=== PATIENT | male | born 1980 | race African-American/Black ===

== ENCOUNTER 2021-03-31 10:20 | Emergency (ER) | payer OTHER, SELFPAY ==
[2021-03-31 10:30] VITALS: BP 142/84; PULSE 72; RESP 20; TEMP 36.9; O2SAT 99
--- NOTE | 2021-03-31 10:34 | ED.LOWEXIN ---
HPI - Extremity Injury (Lower) General Chief Complaint: Extremity Injury, Lower Stated Complaint: rt ankle Time Seen by Provider: 03/31/21 10:40 Source: patient and RN notes reviewed Mode of arrival: ambulatory Limitations: no limitations History of Present Illness HPI Narrative: 40-year-old male presents with concern for laceration to the right ankle. Reports he cut his ankle on a door today. He flushed the wound out with hydrogen peroxide, applied antibiotic ointment and glued the wound closed with superglue. He reports he is up-to-date on his tetanus vaccination. In a separate complaint he reports he has a bug bite on his scrotum that is itchy. Reports he noticed the bite this morning. He denies any scrotal pain, tenderness, testicle pain or tenderness. He denies intervention for the bug bite. MD complaint: ankle injury Related Data Allergies Allergy/AdvReac Type Severity Reaction Status Date / Time grass pollen Allergy Intermediate from test Verified 03/31/21 10:39 Review of Systems Review of Systems: Narrative: CONSTITUTIONAL: Denies malaise, chills, sweats, or fever. SKIN: Reports laceration on the posterior right lower ankle. Reports bug bite on scrotum. MUSCULOSKELETAL: Denies musculoskeletal pain or myalgia. NEUROLOGIC: Denies numbness, weakness All systems reviewed & are unremarkable except as noted in HPI and below PMFSH Past Medical History Medical History (Updated 03/31/21 @ 10:52 by Janna Nunn NP) Chronic allergic rhinitis Chronic sinusitis, unspecified Thoracic vertebral fracture Social History Social History (System 04/15/20 @ 10:41 by Henrietta Abebe) Smoking status: Former smoker Second hand tobacco smoke exposure: Yes Smoking end date: 04/25/17 Alcohol intake: current Gender identity (if verbalized by the patient): Male Sexual Orientation (if Verbalized by the Patient): Straight or Heterosexual Comments At time of signature, agree with nursing past medical, surgical, social and family history. There is no relevant family history pertinent to the presenting complaint Exam Narrative: Exam Narrative: GENERAL: Well-appearing, well-nourished, and in no acute distress. HEAD: Normocephalic, atraumatic. EYES: PERRLA, conjunctivae clear ENT: Mucous membranes moist. NECK: Supple. No lymphadenopathy CHEST: Clear to auscultation. No respiratory distress. HEART: Regular rate and rhythm. SKIN: Warm, dry. 2 cm laceration noted to the posterior right ankle, edges approximated, closed with superglue. Without surrounding redness, erythema, induration. 0.5 cm erythematous papule noted to the right scrotum without surrounding erythema, edema, induration, no drainage noted. MUSCULOSKELETAL: Right lower extremity has grossly normal strength, sensation, range of motion NEURO: Alert and oriented x3. PSYCH: Normal mood and affect Course Course Emergency Course: Patient is aware of diagnosis, understands and agrees to treatment plan. Anticipatory guidance given. Patient agrees to follow-up as directed and is aware of reasons to seek care at the emergency department. Portions of this record may have been created with voice recognition software Vital Signs Vital signs: Vital Signs Temperature 98.5 F 03/31/21 10:30 Pulse Rate 72 03/31/21 10:30 Respiratory Rate 20 03/31/21 10:30 Blood Pressure 142/84 H 03/31/21 10:30 Pulse Oximetry 99 03/31/21 10:30 Temperature 98.5 F 03/31/21 10:30 Pulse Rate 72 03/31/21 10:30 Respiratory Rate 20 03/31/21 10:30 Blood Pressure 142/84 H 03/31/21 10:30 Pulse Oximetry 99 03/31/21 10:30 Reviewed. MDM - Extremity Injury (Lower) MDM Narrative Medical decision making narrative: Exam findings show no acute concerns or changes; patient is non-toxic appearing and is in no distress. Patient is appropriate for outpatient treatment and follow-up. Critical Care Time Critical Care Time Critical Care Time: No Discharge Plan Discharge
== END 2021-03-31 10:55 | disposition home or self-care (01) ==
PROVIDERS: Emergency Provider Nurse Practitioner
DX: S91.011A Laceration without foreign body, right ankle, initial encounter (principal); W45.8XXA Other foreign body or object entering through skin, initial encounter; Z87.891 Personal history of nicotine dependence; Z98.52 Vasectomy status; S30.863A Insect bite (nonvenomous) of scrotum and testes, initial encounter; W57.XXXA Bitten or stung by nonvenomous insect and other nonvenomous arthropods, initial encounter
CPT/HCPCS: 99212; G0463

== ENCOUNTER → 2021-08-03 04:04 | Outpatient (CLI) | payer OTHER, SELFPAY ==
[2021-08-03 16:54] LABS: SARS-CoV-2 RNA PCR Negative
== END ==
PROVIDERS: PCP Family Medicine; Visit Provider Podiatrist Foot & Ankle Surgery
DX: Z01.812 Encounter for preprocedural laboratory examination (principal); Z20.822 Contact with and (suspected) exposure to COVID-19
CPT/HCPCS: C9803; U0003; U0005

== ENCOUNTER 2021-08-06 02:48 | Day surgery (SDC) | payer OTHER, SELFPAY ==
[2021-08-04 10:10] VITALS: BMI 38.0
--- NOTE | 2021-08-04 10:22 | PC.NURSE ---
Addendum entered by Radha Vu RN 08/04/21 10:26: MEDICATIONS TO DISCONTINUE: VITAMINS AND SUPPLEMENTS 3 DAYS PRE-OP, NSAIDS PER DR. STARK. (PT STATES HE HAS NOT BEEN TAKING ANY MEDICATIONS FOR A COUPLE WEEKS) Original Note: Report to the Outpatient Waiting Room, entrance under the green pavilion located off [facility], at time 0600 on date 08/06/21. OR Time: 0730. - You and your visitor will be asked a series of questions to screen for COVID 19 for your protection. - A mask is required within the hospital. - Only one visitor is allowed at this time. Patient visitors will be guided where to wait when not with patient. Preoperative COVID Testing Requirements: No COVID Test needed if: (proof is required; if not received patient will have Rapid Test prior to entry) - Patient has received COVID Vaccine at least 14 days prior to procedure date or - Patient has positive COVID test result within last 90 days of surgery date. COVID Test needed if above criteria is not met If not COVID vaccinated a COVID test must be conducted within 72 hours of surgery and patient is asked to isolate self from time of testing until procedure. You will go to the [facility] for your COVID testing. The [facility] site is located at the corner of [address] [facility]. You will only be called if COVID results are positive and your surgeon may reschedule your elective surgery date. Patients may have clear liquids (water, carbonated beverages, clear teas, apple juice) until 3 hours prior to surgery with a maximum of 20 ounces. - No food from midnight until time of surgery - Infants may have breast milk until 4 hours before surgery, formula 6 hours prior to surgery. - Children will be allowed to drink immediately following surgery. If applicable, please bring a bottle or sippy cup to assist with drinking. Juice, water, soda, and popsicles are readily available. For infants on formula, please bring formula the day of surgery. Pacifiers are allowed. Take the following medications with a SIP of water the morning of surgery: N/A Medications to discontinue per physician: NSAIDS Date to take last dose: 3 DAYS PRE-OP Please no make-up, nail divehi, hairspray, perfume, deodorant, or body powder the day of surgery. No jewelry (including any body piercings) or valuables the day of surgery, leave them at home. Please take a shower or bath the night before, or the morning of, surgery with an antibacterial soap. Wear comfortable, loose fitting clothing. Children are encouraged to wear pajamas. - Jewelry must be removed prior to entering the operating room. Rings and piercings that are not removed may be cut off. - The hospital will not accept responsibility for valuables. - Please leave all valuables, including medications, at home the day of surgery. If you are going home after surgery, a licensed driver license agent must drive you home. - NO public transportation without another adult. - We recommend that an adult stay with you for 24 hours following discharge. - We also recommend that you do not drive, make important decision, drink alcoholic beverages, or take any drugs that were not prescribed by your health care provider for at least 24 hours after your discharge time. For Pediatric surgeries, we recommend two adults accompany the child home (only one inside the building at this time). Follow any additional instructions given to you from your surgeon. Telephone instructions given to BULMARO NUR and asked if any additional questions and then verbalized understanding. Patient advised to call surgeon office or pre surgery nurse liaison [phone] if any additional questions.
[2021-08-06] VITALS (7 sets, daily range): BP systolic 112–130; BP diastolic 59–86; PULSE 59–69; RESP 18–20; TEMP 36.1–37; O2SAT 96–100; BMI 37.3
--- NOTE | ~2021-08-06 | XR_ITS ---
XR surgery orthopedic 08/06/2021 08:41 Indication: Arthrodesis of the left foot Procedure: 4 fluoroscopic views of the left first toe. 17 seconds of fluoroscopy. Comparison: 04/03/2018 Findings: There is side plate and screws transfixing the first metatarsal phalangeal joint. No gross fracture or malalignment. There is a radiopaque screw overlying the hindfoot as well. Impression: 1: Status post intraoperative fixation of the left first metatarsophalangeal joint. Please refer to p rocedural report for details. Reviewed, dictated and finalized at location A. [employer] Impression: 1: Status post intraoperative fixation of the left first metatarsophalangeal eric int. Please refer to procedural report for details.
[2021-08-06] MEDS: LACTATED RINGERS 1,000 ML 30 ML IV CONT ×2 (06:48→09:04)
--- NOTE | 2021-08-06 06:51 | WPDANESEPPF ---
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, Talotarsal Instability Lt Ft Patient Data Age: 41 Gender: M Height: 1.78 m Weight: 118 kg Last Vital Signs Temp 36.1 C L 08/06/21 06:44 Pulse 69 08/06/21 06:44 Resp 18 08/06/21 06:44 BP 130/76 08/06/21 06:44 Pulse Ox 100 08/06/21 06:44 Allergies Allergy/AdvReac Type Severity Reaction Status Date / Time grass pollen Allergy Intermediate from test Verified 08/06/21 06:42 Home Medications Medication Instructions Recorded Confirmed Type fluticasone propionate 50 2 spray NASAL DAILY 90 Days #47.4 10/07/20 08/04/21 Rx mcg/actuation nasal ml spray,suspension meloxicam 15 mg tablet 15 mg PO DAILY 90 Days #90 tablet 10/07/20 08/04/21 Rx ascorbate calcium (vitamin C) 500 500 mg PO DAILY 04/30/21 08/04/21 History mg tablet biotin 5,000 mcg disintegrating 10,000 mcg PO DAILY 04/30/21 08/04/21 History tablet cholecalciferol (vitamin D3) 50 50 mcg PO DAILY 04/30/21 08/04/21 History mcg (2,000 unit) capsule pentoxifylline 400 mg 400 mg PO DAILY tablet 04/30/21 08/04/21 History tablet,extended release montelukast 5 mg chewable tablet 10 mg PO DAILY #30 tablet 05/07/21 08/04/21 Rx Patient hx anesthesia problems: none Family hx anesthesia problems: none Results Review: All pre-operative results and documents have been reviewed as part of the pre-operative evaluation. [facility] Past Medical History Medical History (Updated 08/06/21 @ 06:51 by Dmitry Sellers MD) Chronic allergic rhinitis Chronic sinusitis, unspecified ZURI (obstructive sleep apnea) Thoracic vertebral fracture Family History Family History Father Breast cancer Malignant neoplasm of prostate Colon cancer Diabetes mellitus Hypertension Depression Heart abnormality Cerebrovascular accident Mother Malignant neoplasm of prostate Hypertension Depression Heart disease Social History Social History Smoking packs per day: 0.75 Smoking cigarettes per day: 15.0 Years smoked: 15 Smoking pack-years: 11.25 Smoking status: Current every day smoker Tobacco type: cigarettes Second hand tobacco smoke exposure: Yes Smoking end date: 04/25/17 Alcohol intake: current Drinks per week: 15 Substance use: current Substance use type: marijuana Other substance usage details: SMOKE, EDIBLES Last use: 08/02/21 Living arrangements: with family Gender identity (if verbalized by the patient): Male Sexual Orientation (if Verbalized by the Patient): Straight or Heterosexual Spiritual care concerns: Yes (NO BLOOD PRODUCTS) Anes - Eval Final PreProcedure Day of Procedure 08/06/21 06:51 Patient weight: obese Heart: regular rate and rhythm Lungs: clear to auscultation Airway: Mallampati scale class II Neurological: alert and oriented Last oral intake: >/= 8 hours ASA classification: III Emergent: no Anesthetic plan: proceed Anesthesia type and monitoring: general LMA and standard monitoring Results Review: All pre-operative results and documents have been reviewed as part of the pre-operative evaluation. Informed Consent: The patient's anesthetic plan and its attendant risks and benefits were discussed with the patient/family/POA. Questions were solicited and answers provided to the satisfaction of the patient/family/POA.
--- NOTE | 2021-08-06 07:12 | WPDHPUPDATE1 ---
History and Physical Update Update Date/Time: 08/06/21 07:12 History and Physical has been reviewed, including an updated exam of the patient. There are NO changes in the patient's condition. Risks, benefits, and alternatives have been discussed and questions answered. Patient agrees to proceed with procedure.
--- NOTE | 2021-08-06 07:22 | WPDANESPNB ---
Anes - Peripheral Nerve Block Date/Time: 08/06/21 07:22 I have discussed with the patient/family/POA the placement of a peripheral nerve block for post-operative pain management, including associated risks, benefits, complications, and side effects. Alternative methods of post-operative analgesia were detailed. Questions were solicited and answers provided to the satisfaction of the patient/family/POA. Time-Out: A pre-procedural Time-Out was completed immediately before starting the procedure and confirmed: Patient Identification, Site, Procedure, Patient Position and the Availability of Requisite Equipment. Clinical Indications: Acute post-operative pain management requested by the operative surgeon. Nerve Block Insertion Note Anes-nerve block: posterior fossa sciatic left and other (left saphenous) Patient position: supine Skin prep: chlorhexidine Needle: 22 gauge, stimulating, insulated echogenic needle. Needle length: 80 mm Technique: nerve stimulation lost at (mA) (0.35) Injectate: bupivacaine 0.5% with epi 5 mcg/ml (24cc lateral, 8cc saphenous) and dexamethasone (mg) (8) Observations: tolerated well Complications: none Procedure start time:: 714 Procedure end time:: 720
[2021-08-06] MEDS: ceFAZolin 2 GM/D5W 50 ML 2 GM/50 ML BAG IVPB (07:28)
[2021-08-06] MEDS: LIDOCAINE HCL 2% PF INJ 5 ML VIAL 10 ML INFILTRATE (07:37)
--- NOTE | 2021-08-06 09:16 | W.PM.PROC2 ---
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 Arthrodesis of the first metatarsal phalangeal joint left foot 2. Talotarsal stabilization left foot Surgeon Prosper Unger JR, SEBAS Anesthesia general and regional Description of Procedure PROCEDURE IN DETAIL: Under mild sedation, the patient was brought into the operating room, placed on the operating table in supine position. A pneumatic ankle tourniquet was placed about the patient's ipsilateral ankle. Following general LMA, and a previous popliteal fossa block was obtained about the left foot. I utilized 10cc of 2% Lidocaine plain along the medial forefoot. The foot was then scrubbed, prepped, and draped in the usual aseptic manner. An Esmarch bandage was then used to exsanguinate the patient's foot and the pneumatic ankle tourniquet was then inflated. Surgery began in the following manner: Attention was directed to the dorsal aspect of the 1st metatarsophalangeal joint where there was a large subcutaneous prominence noted along the dorsomedial aspect of the joint. The incision was made starting along the central shaft of the 1st metatarsal and extending just proximal to the interphalangeal joint of the hallux. The incision was continued deep down through the subcutaneous tissues using sharp and blunt dissection. All bleeders were cauterized as necessary. At this point, the dissection was continued down to the level of the periosteum and capsular structures overlying the 1st metatarsophalangeal joint. A full length periosteum and capsular incision was made just medial to the extensor hallucis longus tendon. The periosteum and capsular structures were freed from the base of the proximal phalanx as well as the distal 1st metatarsal. At this point, the 1st metatarsophalangeal joint was identified. There was almost complete loss of articular cartilage to the head of the 1st metatarsal as well as the base of the proximal phalanx. There was significant broadening and hypertrophy of the 1st metatarsophalangeal joint. Utilizing a sagittal bone saw, the hypertrophied 1st metatarsal was resected dorsally, medially, and laterally. A power bur was used to make sure that there were no rough edges and also to further debride the hypertrophic 1st metatarsal. Next, a rongeur was used to resect all hypertrophic base of the proximal phalanx. At this point, the reamer system for the ChoozleCHECK system was used to denude the degenerative cartilage from the head of the 1st metatarsal as well as the base of the proximal phalanx. The cartilage and subchondral bone were fully debrided utilizing the reamer system until healthy bleeding bone was noted. Next, a 2-0 drill bit was used to further fenestrate the head of the 1st metatarsal as well as the base of the proximal phalanx in order to allow fusion across the 1st metatarsophalangeal joint. Next, a 0.045 inch K-wire was driven from the medial aspect of the base of the proximal phalanx into the head of the 1st metatarsal in order to serve as temporary fixation. A large steel plate was used to make sure that the hallux was in a rectus position both in the sagittal plane as well as the frontal and transverse plane. Excellent position of the hallux was noted. Next, a CrossCHECK plate was placed atop the 1st metatarsophalangeal joint held in position with [place] wires. Utilizing standard principles and techniques, the 2 distal drill holes were drilled and two 2.7mm mm fully-threaded locking screws were driven from dorsal to plantar holding the distal aspect of the plate intact. At this point, a 3.5mm lag screw was driven from dorsal distal to proximal plantar across the 1st metatarsophalangeal joint through the plate system with excellent compression noted after careful removal of the olive wire and
[2021-08-06] MEDS: fentaNYL CITRATE INJ (*CRX) 100 MCG/2 ML VIAL 25 MCG IV PUSH (09:20)
== END 2021-08-06 10:25 | disposition home or self-care (01) ==
PROVIDERS: PCP Family Medicine; Visit Provider Podiatrist Foot & Ankle Surgery
PROC: (CPT 28750; principal; 2021-08-06 07:30)
PROC: (CPT 28750; 2021-08-06 07:30)
DX: M19.072 Primary osteoarthritis, left ankle and foot (principal); M25.375 Other instability, left foot; G89.18 Other acute postprocedural pain; G47.33 Obstructive sleep apnea (adult) (pediatric); F17.210 Nicotine dependence, cigarettes, uncomplicated; F12.90 Cannabis use, unspecified, uncomplicated; E66.9 Obesity, unspecified; Z68.37 Body mass index [BMI] 37.0-37.9, adult
CPT/HCPCS: 28899; 64445; 64450; 28750; A9270; C1713; C9803; J0690; J1100; J2250; J2405; J2704; J3010; J7120; U0003; U0005

== ENCOUNTER 2022-11-19 10:33 | Emergency (ER) | payer OTHER, SELFPAY ==
--- NOTE | ~2022-11-19 | XR_ITS ---
XR chest 2V DATE: 11/19/2022 11:11 INDICATION: Cough for 2 months, shortness of breath. Smoker. TECHNIQUE: 2 views COMPARISON: 10/18/2017 two-view chest FINDINGS: Normal heart size. No hilar or mediastinal enlargement. No pulmonary infiltrate or consolid ation, pleural effusion or pulmonary vascular congestion or pneumothorax. There is mild thoracic dextroscoliosis. IMPRESSION: No active cardiopulmonary disease Reviewed, dictated and finalized at location A. [employer]
[2022-11-19 10:45] VITALS: BP 136/75; PULSE 87; RESP 22; TEMP 36.8; O2SAT 98
--- NOTE | 2022-11-19 11:25 | ED.URI ---
HPI - URI/Sore Throat General Chief Complaint: Upper Respiratory Infection Stated Complaint: Congestion,SOB Time Seen by Provider: 11/19/22 11:10 Source: patient Mode of arrival: ambulatory Limitations: no limitations History of Present Illness HPI Narrative: Patient presents today with a 3-4 day history of sinus pressure, congestion, cough, intermittent shortness breath. Denies fever. States he had been having some ongoing chest congestion and cough symptoms since August 30 when he was diagnosed with influenza a, but states that 1 week ago his symptoms had almost completely resolved, until 3-4 days ago when these symptoms started. He has been occasionally taking Mucinex, but cannot tell if it has been providing him with relief. Denies history of asthma or COPD. Smokes 1 pack per day. Related Data Allergies Allergy/AdvReac Type Severity Reaction Status Date / Time grass pollen AdvReac Intermediate from test Verified 11/19/22 10:38 Review of Systems Review of Systems: CONSTITUTIONAL: Denies body aches, fever, chills, or sweats. EYES: Denies visual changes, redness, or discharge. ENT: Denies rhinorrhea, sore throat, or otalgia.+ congestion, sinus pressure CARDIOVASCULAR: Denies chest pain, palpitations, or edema. RESPIRATORY: + cough, shortness of breath GASTROINTESTINAL: Denies abdominal pain, nausea, vomiting, or diarrhea. GENITOURINARY: Denies dysuria or hematuria. SKIN: Denies rash, itching, or wounds. MUSCULOSKELETAL: Denies back pain, joint pain, or myalgia. NEUROLOGIC: Denies headache, numbness, tingling, or weakness. PSYCH: Denies depression or anxiety. [facility] Past Medical History Medical History Chronic allergic rhinitis Chronic sinusitis, unspecified ZURI (obstructive sleep apnea) Thoracic vertebral fracture Family History Family History Father Breast cancer Malignant neoplasm of prostate Colon cancer Diabetes mellitus Hypertension Depression Heart abnormality Cerebrovascular accident Mother Malignant neoplasm of prostate Hypertension Depression Heart disease Social History Social History Smoking packs per day: 0.75 Smoking cigarettes per day: 15.0 Years smoked: 15 Smoking pack-years: 11.25 Smoking status: Current every day smoker Tobacco type: cigarettes Second hand tobacco smoke exposure: Yes Smoking end date: 04/25/17 Alcohol intake: current Drinks per week: 15 Substance use: current Substance use type: marijuana Other substance usage details: SMOKE, EDIBLES Last use: 08/02/21 Living arrangements: with family Gender identity (if verbalized by the patient): Male Sexual Orientation (if Verbalized by the Patient): Straight or Heterosexual Spiritual care concerns: Yes (NO BLOOD PRODUCTS) Comments At time of signature, I have reviewed and agree with nursing past medical, surgical, social and family history unless otherwise noted. Please see nursing chart for further information. There is no relevant family history pertinent to the presenting complaint Exam Narrative: GENERAL: Well-appearing, well-nourished, and in no acute distress. HEAD: Normocephalic, atraumatic. EYES: EOMI. No redness or drainage. Conjunctivae normal. ENT: Mucous membranes pink and moist. Nares mildly congested. No rhinorrhea. TMs normal bilaterally. Throat normal. Uvula midline. NECK: Normal AROM. Supple. No lymphadenopathy. CHEST: No respiratory distress. Clear to auscultation. HEART: Regular rate and rhythm. No murmur appreciated. Normal peripheral pulses. EXTREMITIES: Normal range of motion. No edema. SKIN: Warm, dry, no rash. Capillary refill normal. Normal skin turgor. NEURO: No focal deficits. Alert and oriented x3. Gait steady. PSYCH: Normal affect. No signs of depression or anxiety.
== END 2022-11-19 11:45 | disposition home or self-care (01) ==
PROVIDERS: Emergency Provider Nurse Practitioner; PCP Family Medicine
DX: J01.90 Acute sinusitis, unspecified (principal); J40 Bronchitis, not specified as acute or chronic; F17.210 Nicotine dependence, cigarettes, uncomplicated
CPT/HCPCS: 71046; 99213; G0463

== ENCOUNTER 2025-01-16 15:20 | Emergency (ER) | payer OTHER, SELFPAY ==
--- NOTE | 2025-01-16 15:22 | ED_ITS ---
HPI - URI/Sore Throat General Chief Complaint: Upper Respiratory Infection Stated Complaint: Congestion Time Seen by Provider: 01/16/25 15:21 Source: patient Mode of arrival: ambulatory Limitations: no limitations History of Present Illness HPI Narrative: Daniel is a 44-year-old male patient presenting to the clinic today with complaints of sinus congestion, sinus headache, cough, chest congestion, and shortness of breath x2 weeks.. He reports he has felt feverish but has not checked his temperature. MD elicited complaint: sore throat and nasal congestion Related Data Allergies Allergy/AdvReac Type Severity Reaction Status Date / Time grass pollen Allergy Mild Hives Verified 01/16/25 15:26 Review of Systems Review of Systems: Pertinent positives per HPI. Patient denies any fever, chills, rash, headache, visual changes, dizziness, shortness of breath, chest pain, palpitations, nausea, vomiting, diarrhea, constipation, abdominal pain, or any urinary issues. FOR[facility]LY [facility] Past Medical History Medical History Psoriasis ZURI (obstructive sleep apnea) Thoracic vertebral fracture Chronic sinusitis, unspecified Chronic allergic rhinitis Family History Family History Father Breast cancer Malignant neoplasm of prostate Colon cancer Diabetes mellitus Hypertension Depression Heart abnormality Cerebrovascular accident Mother Malignant neoplasm of prostate Hypertension Depression Heart disease Social History Social History Smoking packs per day: 0.75 Smoking cigarettes per day: 15.0 Years smoked: 15 Smoking pack-years: 11.25 Smoking status: Current every day smoker Tobacco type: cigarettes Second hand tobacco smoke exposure: Yes Smoking end date: 04/25/17 Alcohol intake: current Drinks per week: 15 Substance use: current Substance use type: marijuana Other substance usage details: SMOKE, EDIBLES Last use: 08/02/21 Living arrangements: with family Gender identity (if verbalized by the patient): Male Sexual Orientation (if Verbalized by the Patient): Straight or Heterosexual Spiritual care concerns: Yes (NO BLOOD PRODUCTS) Comments At the time of my signature, I reviewed and agree with the nursing past medical, surgical, social, and family history. There is no relevant family history pertinent to the patient complaint. Exam Narrative: General: Well-developed, obese, in no apparent distress Head: Normocephalic, atraumatic Eyes: Pupils equally round and reactive to light bilaterally, EOM intact, sclera and conjunctive clear, no discharge, lids normal Ears: TMs intact and clear, ear canals clear, no drainage, grossly hearing normal. Nose: Nares patent, yellow nasal discharge, moderate to severe inflammation, maxillary and frontal sinus tenderness. Mouth: Oral pharynx red without lesions or masses, good dentition, MMM. Postnasal drip Neck: Supple, trachea midline, enlargement of anterior cervical nodes, no thyroid masses or goiter palpable. Cardio: Regular rate and rhythm, s1 and s2 normal, no murmur appreciated. Resp: Slightly diminished in the bases otherwise clear, no rhonchi, rales, wheezing or rubs Course Course Emergency Course: Portions of this record may have been created with voice recognition software. Level of Care: Express Care Visit Vital Signs Vital signs: Vital Signs Temperature 36.8 C 01/16/25 15:31 Pulse Rate 87 01/16/25 15:31 Respiratory Rate 18 01/16/25 15:31 Blood Pressure 147/79 H 01/16/25 15:31 Pulse Oximetry 99 01/16/25 15:31 Oxygen Delivery Room Air 01/16/25 15:31 Temperature 36.8 C 01/16/25 15:31 Pulse Rate 87 01/16/25 15:31 Respiratory Rate 18 01/16/25 15:31 Blood Pressure 147/79 H 01/16/25 15:31 Pulse Oximetry 99 01/16/25 15:31 Oxygen Delivery Room Air 01/16/25 15:31 Vital signs reviewed MDM - URI/Sore Throat MDM Narrative Medical decision making narrative: At the time of visit patient is resting comfortably on the exam table. Patient appears to be nontoxic. Plan: I suspect patient has acute bacterial rhinosinusitis/bronchitis. Prescription for Augmentin, prednisone, and albuterol inhaler was sent to the pharmacy. Supportive measures were discussed with the patient and they voiced understanding discharge instructions and agrees to treatment plan. Return precautions reviewed Differential Diagnosis Differential diagnosis: Likely upper respiratory infection, otitis media, sinusitis, viral infection, bronchitis, influenza and pharyngitis Discharge Plan Discharge Clinical Impression: Sinobronchitis Patient Disposition: Home Condition: Stable Instructions: Antibiotic Form, Acute Bronchitis (ED), Rhinosinusitis (ED) Additional Instructions: Take prescription medications only as prescribed-albuterol inhaler, prednisone, and Augmentin Increase fluids and stay well hydrated Tylenol/motrin for pain/fever Flonase and OTC antihistamines as directed Vicks vapor rub to open sinuses Sinus rinses for congestion Cepacol spray, cough drops, throat lozenges, warm tea with honey/lemon, gargle salt water to soothe throat BRAT diet for diarrhea Clear liquids x 24 hours then advance as tolerated for nausea/vomiting Go to the ED if you develop a worsening in your condition- high fever not controlled by Tylenol or Motrin, dehydration, weakness, lethargy, shortness of breath, or chest pain. Follow up with your PCP in 3-5 days if symptoms persist. Patient Language: Serbian Prescriptions: New prednisone 20 mg tablet 40 mg PO DAILY 5 Days Qty: 10 0RF albuterol sulfate 90 mcg/actuation HFA aerosol inhaler 2 puff inhalation Q4-6H PRN (Reason: shortness of breath or wheezing) 30 Days Qty: 8.5 0RF amoxicillin-pot clavulanate 875-125 mg tablet 1 tablet PO Q12H 10 Days Qty: 20 0RF No Action albuterol sulfate [ProAir HFA] 90 mcg/actuation HFA aerosol inhaler 2 puff INHALATION Q4-6H PRN (Reason: shortness of breath or wheezing) Qty: 18 0RF triamcinolone acetonide 0.1 % lotion 1 applic topical BID Qty: 60 3RF prednisone 20 mg tablet 20 mg PO DAILY Qty: 20 0RF montelukast 10 mg tablet 10 mg PO DAILY Qty: 90 1RF Follow-up/Referrals: UNKNOWN,DOCTOR [Non-Staff] - Time of Disposition: 15:39 Quality NIHSS Nursing Documentation ED NIHSS nursing documentation: reviewed/agree
[2025-01-16 15:31] VITALS: BP 147/79; PULSE 87; RESP 18; TEMP 36.8; O2SAT 99
--- OUTSIDE RECORDS SUMMARY | 2025-01-16 16:39 | XMS_ITS | Clinical Summary ---
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 (Once a day dosing) 20 tablet 02/21/2024 Active meloxicam (MOBIC) 15 MG tabletIndication s:Carpal tunnel syndrome of left wrist Take 1 tablet (15 mg total) by mouth daily. 30 tablet 02/22/2024 Active Active Problems No known active problems Social History Tobacco Use Types Packs/Day Years Used Date Smoking Tobacco: Every Day Cigarettes 0.5 15 Passive Smoke Exposure: Never Smokeless Tobacco: Never Tobacco Cessation:Ready to Q uit: No; Counseling Given: Yes Alcohol Use Standard Drinks/Week Comments Yes 0 (1 standard drink = 0.6 oz pur e alcohol) 2 beers every other day PHQ-2 Answer Date Recorded Patient Health Questionnaire-2 Score 0 02/22/2024 Sex and Gender Information Value Date Recorded Sex Assigned at Not on file Legal Sex Male 8:09 PM CDT Gender Identity Not on file Sexual Orientation Not on file Last Filed Vital Signs Vital Sign Reading Time Taken Comments Blood Pressure 136/84 02/22/2024 6:03 PM CDT Pulse 88 02/22/2024 6:03 PM CDT Temperature 35.6 C (96.1 F) 02/22/2024 6:03 PM CDT Respiratory Rate 16 02/22/2024 6:03 PM CDT Oxygen Saturation 96% 02/22/2024 6:03 PM CDT Inhaled Oxygen Concentration - - Weight 128.4 kg (283 lb) 02/22/2024 6:03 PM CDT Height 177.8 cm (5' 10 ) 02/22/2024 6:03 PM CDT Body Mass Index 40.61 02/22/2024 6:03 PM CDT Plan of Treatment Health Maintenance Due Date Last Done Comments Annual Physical 1982 Hepatitis C 1997 DTaP, Tdap and Td Vaccines ( 1 - Tdap) 1998 Hepatitis B Vaccines (1 of 3 - 19+ 3-dose series) 1998 Pneumococcal Vaccine: Pediatrics (0 to 5 Years) and At-Risk Patients (6 to 49 Years) (1 of 2 - PCV) 1998 COVID-19 Vaccine (2023-2 5 season) 2024 PHQ-2 (Physician [place]) 09/25/2024 02/22/2024 Colorectal Cancer Screening Colonoscopy (10 Years) 05/11/2031 05/11/2021, 06/08/2014 HPV Vaccines Aged Out No longer eligi ble based on patient's age to complete this topic Meningococcal B Vaccine Aged Out No l onger eligible based on patient's age to complete this topic Meningococcal Vaccine Aged Out No bruno cortney eligible based on patient's age to complete this topic RSV Immunizations Under 20 Months Aged Out No longer eligible b ased on patient's age to complete this topic Procedures Procedure Name Priority Date/Time Associated Diagnosis Comments COLONOSCOPY/EGD GENERIC (SCAN ORDER) 05/11/2021 from Last 3 Months or Most Recently Relevant to Health Maintenance Results * COLONOSCOPY/EGD GENERIC (05/11/2021) 05/11/2021 Narrative 05/11/2021 Ordered by an unspecified provider. 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
== END 2025-01-16 15:46 | disposition home or self-care (01) ==
PROVIDERS: Emergency Provider Nurse Practitioner Family
DX: J32.9 Chronic sinusitis, unspecified (principal); J40 Bronchitis, not specified as acute or chronic; Z87.891 Personal history of nicotine dependence; L40.9 Psoriasis, unspecified
CPT/HCPCS: 99213; G0463